=== PATIENT | female | born 1970 | race Caucasian/White ===

== ENCOUNTER 2018-08-30 13:35 | Emergency (ER) | payer OTHER ==
[~2018-08-30] VITALS: Ht 157.5 cm; Wt 50.4 kg
[2018-08-30 13:40] VITALS: Ht 157.5 cm; Wt 50.4 kg
[2018-08-30] MEDS ORDERED: SOD CHLORIDE 0.9% 1,000 ML IV STA (15:03)
--- NOTE | 2018-08-30 15:20 | ERD ---
ER Documentation Chief Complaint Chief Complaint L upper head/neck pain after falling and hitting head on brick 2.5 hrs ago HPI This is a 48-year-old female with a history of hypertension who presents ED with headache, head contusion and neck pain status post ground-level fall that occurred 2-1/2 hours prior to arrival in ED. Patient states that she excellently slipped on some oil that was in the driveway and struck her head on a brick. Patient had loss of consciousness for roughly 10 minutes. Denies confusion, dizziness, lightheadedness, worst headache of life, chest pain, shortness of breath, trouble breathing, abdominal pain, nausea, vomiting, blurry vision, changes in vision all other symptoms. Admits to tobacco use, alcohol use and marijuana use. Denies any history of IV drug abuse. Denies use the blood thinners but states that sister gave her a Tylenol and aspirin after the event occurred. ROS All systems reviewed and are negative except as per history of present illness. Allergies Allergies: Coded Allergies: No Known Allergy (Unverified , 08/30/18) FmHx Family History: No diabetes Physical Exam Vitals Vital Signs Date Temp Pulse Resp B/P (MAP) Pulse Ox O2 O2 Flow FiO2 Time Delivery Rate 08/30/18 97.0 56 18 183/86 98 13:40 (118) Physical Exam Physical Exam Vitals signs: Reviewed by me. General: Well developed, well nourished, in no acute distress. Patient is awake and alert. Head: Moderate size contusion on patient's left frontal temporal region, moderate sized hematoma in left frontal temporal region Eyes: Normal conjunctiva, Pupils PERRLA, EOM intact bilaterally x6, ENT: Pharynx is clear, Moist mucous membranes, external ears, nose and mouth normal no blood in posterior oropharynx, no septal hematoma, no hemotympanum Neck: Supple, no masses, lymphadenopathy or JVD, no cervical midline tenderness, there is mild tenderness palpation along the paravertebral muscles around C7, Respiratory: Clear to auscultation bilaterally with no wheezing, rhonchi, rales, no distress Cardiovascular: RRR, no murmurs, rubs, or gallops Abdominal: Soft, non-tender, non-distended, no peritoneal signs : Deferred MSK: No edema, no unilateral swelling, 5/5 strength Back: No midline tenderness. No flank tenderness Neurologic: Alert and oriented, moving all extremities, normal speech, no focal weakness, no cerebellar signs. Normal mentation Neuro: M/S: Alert and oriented x3 Face: EOMI, face and pharynx with normal sensation and function Motor: Normal strength throughout Sensation: Normal sensation throughout Speech: Normal Cerebel: Normal coordination Normal gait Normal finger to nose DTR: 2+ and symmetric upper/lower extremities Cranial nerves II through XII intact bilaterally Skin: warm and dry, No rash Psych: Normal mood Results 24 hrs Current Medications Medications Dose Sig/Pooja Start Time Status Last (Trade) Ordered Route PRN Stop Time Admin Dose Reason Admin Sodium 1,000 ml @ Q1H STAT 08/30/18 08/30/18 Chloride 1,000 mls/hr IV 15:03 15:44 08/30/18 16:02 1 tab ONCE ONCE 08/30/18 DC 08/30/18 Acetaminophen PO 15:30 15:44 / 08/30/18 15:31 Hydrocodone Bitart ([place] (5/325)) Procedures/MDM EKG, MONITORS, & DIAGNOSTIC IMAGING: [place] [address] Radiology Main Line: [phone] DIAGNOSTIC IMAGING REPORT Patient: STEVE MCDANIEL : 1970 Age: 48 Sex: F [id number] DOS: 08/30/18 1503 Ordering MD: ARGENIS RUSH PA-C Location: [facility] Room/Bed: PROCEDURE: CT Cervical Spine without contrast. CLINICAL INDICATION: Trauma. Status post fall. TECHNIQUE: Noncontrast CT of the cervical spine was performed with axial images. Coronal and sagittal images were also performed. The administered radiation dose was CTDI vol = 22.1 mGy, DLP = 421.06 mGy-cm. One or more of the following dose reduction techniques were used: Automated exposure control, Adjustment of the mA and/or kV according to patient size, or Use of iterative reconstruction technique. DICOM images are available. COMPARISON: There are no similar studies submitted for comparison. FINDINGS: There is reversal of the cervical lordosis suggesting muscle spasm and/or degenerative changes. The vertebral body heights are maintained. There is normal alignment. There is no destructive osseous lesion. No acute fracture is identified. C2-C3 : There is a 2 mm circumferential disc osteophyte complex without spinal canal stenosis. There is mild facet arthropathy without bilateral foraminal stenosis. C3-C4 : There is a 2 mm central disk/osteophyte protrusion without spinal canal stenosis. There is mild facet arthropathy without bilateral foraminal stenosis. C4-C5 : There is trace anterolisthesis with a circumferential disc osteophyte complex without spinal canal stenosis. There is mild facet arthropathy and bilateral uncovertebral hypertrophy without bilateral foraminal stenosis. C5-C6 : There is moderate disc space narrowing. There is a 2 mm circumferential disc osteophyte complex with mild to moderate spinal canal stenosis. There is moderate facet arthropathy and bilateral uncovertebral hypertrophy causing mild to moderate left without right foraminal stenosis. C6-C7 : There is a 1 mm circumferential disc osteophyte complex without spinal canal stenosis. There is mild facet arthropathy with mild left without right foraminal stenosis. C7-T1 : There is no disc herniation or spinal canal stenosis. There is mild bilateral facet arthropathy without bilateral foraminal stenosis. There are mild to moderate emphysematous changes. IMPRESSION: 1. No acute fracture or subluxation. 2. Reversal of the cervical lordosis suggesting muscle spasm and/or degenerative changes. 3. Mild to moderate degenerative changes as detailed above 4. Mild to moderate emphysematous changes. Further findings as detailed above. RPTAT: PP .Alon Chen MD, Date Time Electronically viewed and signed by .Alon Chen MD, on 08/30/2018 15:49 .F/ CC: ARGENIS RUSH PA-C [id number] [place] [address] Radiology Main Line: [phone] DIAGNOSTIC IMAGING REPORT Patient: STEVE MCDANIEL : 1970 Age: 48 Sex: F MR #: [id number] DOS: 08/30/18 1503 Ordering MD: ARGENIS RUSH PA-C Location: [facility] Room/Bed: PROCEDURE: Noncontrast CT Head. CLINICAL INDICATION: Trauma. Status post fall. TECHNIQUE: Noncontrast CT of the head was obtained. The administered radiation dose was CTDI vol = 39.64 mGy, DLP = 634.23 mGy-cm. One or more of the following dose reduction techniques were used: Automated exposure control, Adjustment of the mA and/or kV according to patient size, or Use of iterative reconstruction technique. DICOM images are available. COMPARISON: There are no similar studies submitted for comparison. FINDINGS: There is mild to moderate generalized cerebral volume loss. There is minimal periventricular hypoattenuation suggesting chronic microvascular ischemic changes. There is no loss of jennings-white differentiation to suggest acute territorial infarction. There is no acute intracranial hemorrhage. There is no mass effect. No midline shift is identified. The orbits are within normal limits. There is minimal bilateral ethmoid sinus mucosal thickening. No destructive osseous lesion is identified. There is moderate left frontal scalp subcutaneous hematoma. IMPRESSION: 1. No acute intracranial hemorrhage. 2. Mild to moderate generalized cerebral volume loss. 3. Minimal chronic microvascular ischemic changes. 4. Moderate left frontal scalp subcutaneous hematoma. Further findings as detailed above. RPTAT: PP .Alon Chen MD, MD Date Time Electronically viewed and signed by .Alon Chen MD, MD on 08/30/2018 15:46 .F/ CC: ARGENIS RUSH PA-C [id number] ER COURSE: The patient was given [place] and IV normal saline The medication was well tolerated and the patient reports improvement in symptoms. The patient was stable throughout ED course. I kept the patient and/or family informed of laboratory and diagnostic imaging results throughout the emergency room course. The patient was promptly evaluated and a treatment plan was devised based on H&P and other data. This plan was discussed with the patient who agreed and had no further questions or concerns prior to discharge. MEDICAL DECISION MAKING: This is a 48-year-old female presents ED with frontal temporal scalp hematome, headache and neck pain status post ground-level fall that occurred 2-1/2 hours prior to arrival in ED. Patient did have short loss of consciousness with this event that lasted under 10 minutes. Proceeded with ordering CT head without contrast and cervical spine CT. there is no periorbital ecchymosis, mastoid tenderness, mastoid ecchymosis, hemotympanum, septal hematoma or blood seen in posterior pharynx so I doubt skull fracture. CT of brain without contrast shows no acute pathology. The patient's headache is unlikely related to serious etiology. The patient does not exhibit any clinical signs or symptoms, and has n o risk factors to suggest headache etiology such as subarachnoid hemorrhage, acute vertebral or carotid dissection, intracranial mass, epidural, subdural hematoma, dural venous sinus thrombosis, giant cell arteritis, or pseudotumor cerebri. Given patient's JEFFRY and symptoms, I will treat patient conservatively for concussion. Advised no NSAIDs and no aspirin and no contact sports until cleared by primary care. And also advised brain rest. As for patient's neck pain. CT cervical spine is unremarkable. Given mechanism of injury and location of pain being along the paravertebral muscles this is likely a muscle strain or muscle related pain. History and physical examination other data not consistent with emergent processes including but not limited to fracture, subluxation, spinal cord injury, carotid / vertebral dissection, cauda equina syndrome, cord compression, infiltrative etiology, infectious etiology, epidural abscess, among others. Patient's vitals are stable and she can be managed outpatient with close follow-up. Patient follow-up with her primary care in the next 48 hours. Advised patient to return to ED with any worsening symptoms DISPOSITION PLAN: We discussed follow up with the patient's primary care doctor within 24 to 48 hours. Patient counseled regarding my diagnostic impression and care plan. Prior to discharge all questions answered. Pt agrees with treatment plan and understands strict return precautions. Precautionary instructions provided including instructions to return to the ER if not improving or for any worsening or changing symptoms or concerns. SPECIALIST FOLLOW UP RECOMMENDED: None Patient has been advised to follow up with primary care in 1-2 days. Disclaimer: Inadvertent spelling and grammatical errors are likely due to EHR /dictation software use and do not reflect on the overall quality of patient care. Also, please note that the electronic time recorded on this note does not necessarily reflect the actual time of the patient encounter. Departure Diagnosis: Primary Impression: Acute head injury Encounter type: initial encounter Qualified Codes: S09.90XA - Unspecified injury of head, initial encounter Additional Impressions: Closed head injury with brief loss of consciousness Concussion Encounter type: initial encounter Loss of consciousness presence/duration: with LOC of 30 min or less Qualified Codes: S06.0X1A - Concussion with loss of consciousness of 30 minutes or less, initial encounter Neck strain Encounter type: initial encounter Qualified Codes: S16.1XXA - Strain of muscle, fascia and tendon at neck level, initial encounter Headache Headache type: unspecified Headache chronicity pattern: acute headache Intractability: not intractable Qualified Codes: R51 - Headache Scalp hematoma Encounter type: initial encounter Qualified Codes: S00.03XA - Contusion of scalp, initial encounter Condition: Stable Patient Instructions: After a Concussion, Concussion, HEAD INJURY, No Wake-Up (Adult), Hematoma, Neck Sprain/Strain, Self-Care for Headaches Referrals: COMM[facility] Additional Instructions: Patient advised to return to the ED immediately for new or worsening symptoms. Patient advised to follow up with primary care provider in the next 24-48 hours. Patient verbalized understanding and agrees with treatment plan and course of action. If patient has no primary care they may follow up with one of the community clinics listed on the following page or one of the options listed below [facility] [address] [place] [phone] or [facility] [address] [place] [address] or [facility] [address] [place] [address] ARGENIS RUSH PA-C Aug 30, 2018 15:20
[2018-08-30] MEDS ORDERED: HYDROCODONE/APAP (5/325) TAB PO ONE (15:30)
[2018-08-30] MEDS ORDERED: HYDR-4011 PO (16:04)
[2018-08-30 17:19] VITALS: BP 112/64; PULSE 78; RESP 20
== END 2018-08-30 17:20 | disposition home or self-care (01) ==
LOC: FTE 13:35
DX: S06.0X1A Concussion with loss of consciousness of 30 minutes or less, initial encounter (principal); S16.1XXA Strain of muscle, fascia and tendon at neck level, initial encounter; S00.03XA Contusion of scalp, initial encounter; I10 Essential (primary) hypertension; W01.198A Fall on same level from slipping, tripping and stumbling with subsequent striking against other object, initial encounter
CPT/HCPCS: 70450; 72125; J7030; Z7502; Z7610